=== PATIENT | female | born 1940 | race Caucasian/White ===

== ENCOUNTER 2019-11-14 08:59 | Observation (INO) ==
[2019-11-14 09:43] LABS: Basophils % 0.2 %; Eosinophils % 0.7 %; Hematocrit 33.1 % (35.3-44.9); Hemoglobin 10.1 g/dL (11.5-15.4); Immature Granulocytes % 0.4 % (0-4); Lymphocytes # 1.8 K/mcL (0.6-4.6); Lymphocytes % 32.4 %; Mean Corpuscular HGB Conc 30.5 g/dL (31.6-35.5); Mean Corpuscular Hemoglobin 29.7 pg (28.0-33.3); Mean Corpuscular Volume 97.4 fL (83.0-100.0); Mean Platelet Volume 10.3 fL (9.4-12.4); Monocytes # 0.3 K/mcL (0.0-1.3); Monocytes % 5.3 %; Red Cell Distribution Width 13.9 % (11.5-14.5); White Blood Count 5.5 K/mcL (4.3-11.1)
[2019-11-14] MEDS ORDERED: 0.9 % Sodium Chloride 1,000 ML IVC ONE (09:44)
[2019-11-14 09:49] LABS: Prothrombin Time 11.9 Seconds (9.4-12.1)
[2019-11-14 09:52] LABS: Activated Partial Thrombo Time 25.8 Seconds (26.0-36.0)
[2019-11-14 09:57] LABS: Neutrophils # 3.4 K/mcL (1.6-8.9); Platelet Count 68 K/mcL (140-400)
[2019-11-14 10:05] LABS: Alanine Aminotransferase 8 Units/L (7-52); Albumin 4.2 g/dL (3.5-5.7); Albumin/Globulin Ratio 2.2 (1.1-2.2); Alkaline Phosphatase 56 Units/L (34-104); Aspartate Amino Transferase 22 Units/L (13-39); BUN/Creatinine Ratio 23 (6-26); Bilirubin,Direct 0.3 mg/dL (0.0-0.2); Bilirubin,Total 1.3 mg/dL (0.3-1.0); Blood Urea Nitrogen 23 mg/dL (8-23); Calcium 9.8 mg/dL (8.6-10.3); Carbon Dioxide 29 mEq/L (23-29); Chloride 105 mEq/L (98-107); Globulin 1.9 g/dL (2.4-3.5); Glucose 93 mg/dL (70-105); Osmolality,Calculated 293 (280-300); Potassium 4.1 mEq/L (3.5-5.1); Sodium 140 mEq/L (136-145); Total Protein 6.1 g/dL (6.4-8.9); Troponin I < 0.03 ng/mL (< 0.04); eGFR For African Americans > 60 (> 60); eGFR For Non-African Americans 53 (> 60)
[2019-11-14] MEDS ORDERED: Isovue-370 500 ML BOTTLE IVP ONE ×2 (10:31→10:32)
[2019-11-14 10:37] LABS: Bilirubin,Urine Negative (Negative); Blood,Urine Negative (Negative); Clarity,Urine Clear (Clear); Color,Urine Yellow (Yellow); Glucose,Urine (UA) Normal (Normal); Ketones,Urine Negative (Negative); Leukocyte Esterase,Urine Negative (Negative); Nitrite,Urine Negative (Negative); Protein,Urine Negative (Neg-Trace); Specific Gravity,Urine 1.019 (1.010-1.025); Urobilinogen,Urine Normal (Normal)
[2019-11-14] MEDS ORDERED: Aspirin 81 MG TAB.CHEW PO ONE (11:44)
[2019-11-14] MEDS ORDERED: *HR* Heparin 5,000 UNIT/ML VIAL IVP ONE (11:44)
[2019-11-14] MEDS ORDERED: *HR* Heparin 5,000 UNIT/ML VIAL IVP PRN ×2 (11:44)
[2019-11-14] MEDS ORDERED: Heparin 25,000UNIT/250ML 1/2NS 25,000 UNIT/250 ML IV.SOLN IVC SCH (11:45)
[2019-11-14] MEDS ORDERED: Ondansetron 4 MG/2 ML VIAL IVP PRN (12:16)
[2019-11-14] MEDS ORDERED: Perflutren Lipid Microsphere 1.3 ML in 0.9 % Sodium Chloride 8.7 ML IVP PRN (12:16)
[2019-11-14] MEDS ORDERED: Naloxone 0.4 MG/ML INJ IVP PRN (12:16)
[2019-11-14 12:50] LABS: Hemoglobin 8.7 g/dL (11.5-15.4)
[2019-11-14 12:52] LABS: Hematocrit 28.8 % (35.3-44.9); Immature Platelets 3.2 % (1.1-6.1); Mean Corpuscular HGB Conc 30.2 g/dL (31.6-35.5); Mean Corpuscular Hemoglobin 29.6 pg (28.0-33.3); Mean Platelet Volume 9.7 fL (9.4-12.4); Red Blood Count 2.94 M/mcL (3.82-4.97); Red Cell Distribution Width 13.9 % (11.5-14.5); White Blood Count 4.6 K/mcL (4.3-11.1)
[2019-11-14 13:36] LABS: Adenovirus Not Detected (Not Detect); Bordetella Pertussis Not Detected (Not Detect); Chlamydophila pneumoniae Not Detected (Not Detect); Coronavirus 229E Not Detected (Not Detect); Coronavirus HKU1 Not Detected (Not Detect); Coronavirus NL63 Not Detected (Not Detect); Coronavirus OC43 Not Detected (Not Detect); Human Metapneumovirus Not Detected (Not Detect); Human Rhinovirus/Enterovirus Not Detected (Not Detect); Influenza A Subtype 2009 H1 Not Detected (Not Detect); Influenza B Not Detected (Not Detect); Mycoplasma pneumoniae Not Detected (Not Detect); Parainfluenza Virus 1 Not Detected (Not Detect); Parainfluenza Virus 2 Not Detected (Not Detect); Parainfluenza Virus 3 Not Detected (Not Detect); Parainfluenza Virus 4 Not Detected (Not Detect); Respiratory Syncytial Virus Not Detected (Not Detect)
[2019-11-14 17:30] LABS: Basophils % 0.2 %; Eosinophils % 0.6 %; Mean Corpuscular Volume 98.4 fL (83.0-100.0)
[2019-11-14 17:32] LABS: Immature Granulocytes % 0.4 % (0-4); Immature Platelets 3.2 % (1.1-6.1); Lymphocytes # 2.1 K/mcL (0.6-4.6); Lymphocytes % 41.1 %; Mean Corpuscular Hemoglobin 29.5 pg (28.0-33.3); Mean Platelet Volume 9.9 fL (9.4-12.4); Monocytes # 0.4 K/mcL (0.0-1.3); Monocytes % 8.5 %; Neutrophils # 2.5 K/mcL (1.6-8.9); Red Blood Count 3.05 M/mcL (3.82-4.97); Segmented Neutrophils % 49.2 %; White Blood Count 5.1 K/mcL (4.3-11.1)
[2019-11-14 17:37] LABS: Platelet Count 64 K/mcL (140-400)
[2019-11-14] MEDS: *HR* Heparin 5,000 UNIT/ML VIAL SQ SCH (18:21)
[2019-11-14] MEDS ORDERED: Gabapentin 300 MG CAPSULE PO SCH (22:15)
[2019-11-15] MEDS ORDERED: Albuterol 2.5 MG/3 ML NEBULIZER IH PRN (03:10)
[2019-11-15] MEDS ORDERED: Ipratropium/Albuterol Neb 3 ML IH ONE (03:14)
[2019-11-15 03:59] LABS: Hemoglobin 9.4 g/dL (11.5-15.4); Mean Corpuscular Volume 97.5 fL (83.0-100.0); Monocytes % 7.5 %
[2019-11-15 04:00] LABS: Eosinophils % 0.6 %; Hematocrit 30.6 % (35.3-44.9); Immature Granulocytes % 0.4 % (0-4); Immature Platelets 3.1 % (1.1-6.1); Lymphocytes # 2.2 K/mcL (0.6-4.6); Lymphocytes % 42.2 %; Mean Corpuscular HGB Conc 30.7 g/dL (31.6-35.5); Mean Corpuscular Hemoglobin 29.9 pg (28.0-33.3); Mean Platelet Volume 10.2 fL (9.4-12.4); Monocytes # 0.4 K/mcL (0.0-1.3); Neutrophils # 2.6 K/mcL (1.6-8.9); Red Blood Count 3.14 M/mcL (3.82-4.97); Red Cell Distribution Width 13.8 % (11.5-14.5); Segmented Neutrophils % 49.3 %; White Blood Count 5.2 K/mcL (4.3-11.1)
[2019-11-15 04:03] LABS: Platelet Count 63 K/mcL (140-400)
[2019-11-15 04:17] LABS: BUN/Creatinine Ratio 22 (6-26); Blood Urea Nitrogen 18 mg/dL (8-23); Calcium 8.8 mg/dL (8.6-10.3); Carbon Dioxide 28 mEq/L (23-29); Chloride 109 mEq/L (98-107); Glucose 93 mg/dL (70-105); Osmolality,Calculated 296 (280-300); Potassium 4.1 mEq/L (3.5-5.1); Sodium 142 mEq/L (136-145); eGFR For African Americans > 60 (> 60); eGFR For Non-African Americans > 60 (> 60)
[2019-11-15] MEDS: *HR* Heparin 5,000 UNIT/ML VIAL SQ SCH ×2 (05:07→14:52)
[2019-11-15] MEDS ORDERED: Nitroglycerin 1 INCH/GM PACKET TP ONE (10:35)
[2019-11-15 11:37] LABS: % Iron Saturation 11 % (15-50); Iron 28 mcg/dL (50-170); Transferrin 185 mg/dL (203-362)
[2019-11-15 11:45] LABS: Ferritin 177 ng/mL (10-120)
[2019-11-15] MEDS ORDERED: *HR* OxyCODONE/APAP 5/325 TABLET PO PRN (14:56)
[2019-11-15] MEDS: Cholecalciferol (D-3) 1,000 UNIT (25MCG) TABLET PO SCH (16:05)
[2019-11-15] MEDS: Furosemide 40 MG TABLET PO SCH (16:05)
[2019-11-15 18:11] LABS: Folate 11.4 ng/mL (3.0-16.0)
[2019-11-15 18:14] LABS: Hepatitis B Surface Antigen Nonreactive (Nonreactive)
[2019-11-15 18:43] LABS: Hepatitis C Virus Antibody Nonreactive (Nonreactive)
[2019-11-15 18:44] LABS: Hepatitis B Core IgM Nonreactive (Nonreactive)
[2019-11-15 18:45] LABS: Hepatitis A Antibody IgM Nonreactive (Nonreactive)
[2019-11-15] MEDS: Gabapentin 300 MG CAPSULE PO SCH (22:19)
[2019-11-15] MEDS: traZODone 50 MG TABLET PO SCH (22:19)
[2019-11-16 04:41] LABS: Basophils % 0.2 %; White Blood Count 5.9 K/mcL (4.3-11.1)
[2019-11-16 04:43] LABS: Eosinophils % 0.7 %; Hematocrit 28.8 % (35.3-44.9); Hemoglobin 8.9 g/dL (11.5-15.4); Immature Granulocytes % 0.2 % (0-4); Immature Platelets 3.3 % (1.1-6.1); Lymphocytes % 58.5 %; Mean Corpuscular HGB Conc 30.9 g/dL (31.6-35.5); Mean Corpuscular Hemoglobin 29.9 pg (28.0-33.3); Mean Corpuscular Volume 96.6 fL (83.0-100.0); Mean Platelet Volume 10.1 fL (9.4-12.4); Monocytes # 0.4 K/mcL (0.0-1.3); Monocytes % 6.6 %; Red Blood Count 2.98 M/mcL (3.82-4.97); Red Cell Distribution Width 13.9 % (11.5-14.5); Segmented Neutrophils % 33.8 %
[2019-11-16 04:44] LABS: Lymphocytes # 3.5 K/mcL (0.6-4.6); Platelet Count 62 K/mcL (140-400)
[2019-11-16 04:57] LABS: BUN/Creatinine Ratio 16 (6-26); Blood Urea Nitrogen 17 mg/dL (8-23); Calcium 8.9 mg/dL (8.6-10.3); Carbon Dioxide 31 mEq/L (23-29); Chloride 107 mEq/L (98-107); Glucose 88 mg/dL (70-105); Osmolality,Calculated 297 (280-300); Potassium 3.9 mEq/L (3.5-5.1); Sodium 143 mEq/L (136-145); eGFR For African Americans > 60 (> 60); eGFR For Non-African Americans 50 (> 60)
[2019-11-16] MEDS: Furosemide 40 MG TABLET PO SCH (12:57)
[2019-11-16] MEDS: Cholecalciferol (D-3) 1,000 UNIT (25MCG) TABLET PO SCH (12:57)
[2019-11-16] MEDS: Cyanocobalamin (B-12) 1,000 MCG/ML VIAL IM SCH (13:16)
[2019-11-16] MEDS ORDERED: 0.9 % Sodium Chloride 500 ML ONE (14:24)
[2019-11-16] MEDS ORDERED: *HR* FentaNYL (PF) 100 MCG/2 ML VIAL IVP ONE (14:35)
[2019-11-16] MEDS ORDERED: *HR* Midazolam HCl 2 MG/2 ML VIAL IVP ONE (14:35)
[2019-11-16] MEDS: traZODone 50 MG TABLET PO SCH (21:34)
[2019-11-16] MEDS: Gabapentin 300 MG CAPSULE PO SCH (21:34)
[2019-11-17 04:17] LABS: Basophils % 0.2 %; Hemoglobin 8.7 g/dL (11.5-15.4)
[2019-11-17 04:19] LABS: Eosinophils # 0.1 K/mcL (0.0-0.6); Eosinophils % 1.2 %; Immature Granulocytes % 0.5 % (0-4); Lymphocytes # 3.7 K/mcL (0.6-4.6); Lymphocytes % 56.3 %; Mean Corpuscular Hemoglobin 29.4 pg (28.0-33.3); Mean Platelet Volume 9.8 fL (9.4-12.4); Monocytes # 0.5 K/mcL (0.0-1.3); Monocytes % 7.1 %; Neutrophils # 2.3 K/mcL (1.6-8.9); Red Blood Count 2.96 M/mcL (3.82-4.97); Red Cell Distribution Width 14.1 % (11.5-14.5); Segmented Neutrophils % 34.7 %; White Blood Count 6.5 K/mcL (4.3-11.1)
[2019-11-17 04:26] LABS: Platelet Count 64 K/mcL (140-400)
[2019-11-17 04:36] LABS: Calcium 8.7 mg/dL (8.6-10.3); Potassium 4.2 mEq/L (3.5-5.1)
[2019-11-17 06:30] VITALS: BP 125/78
[2019-11-17] MEDS: Cholecalciferol (D-3) 1,000 UNIT (25MCG) TABLET PO SCH (08:42)
[2019-11-17] MEDS: Cyanocobalamin (B-12) 1,000 MCG/ML VIAL IM SCH (08:42)
[2019-11-17] MEDS: Furosemide 40 MG TABLET PO SCH (08:42)
[2019-11-17 16:54] LABS: Kappa Qnt Free Light Chains 19.96 mg/L (3.30-19.40); Lambda Qnt Free Light Chains 34.76 mg/L (5.71-26.30)
[2019-11-19 03:22] LABS: Alpha 2 Globulin (PEP) 0.55 g/dL (0.48-1.05); Beta Globulin (PEP) 0.45 g/dL (0.48-1.10)
[2019-11-19 13:54] LABS: Immunoglobulin G 423 mg/dL (768-1632); Immunoglobulin M 66 mg/dL (35-263)
[2019-11-19 13:55] LABS: Immunoglobulin A 53 mg/dL (68-408)
[2019-11-19 14:07] LABS: IFE Reflexed IFE Done
== END 2019-11-17 12:01 | disposition home or self-care (01) ==
LOC: EMEROOARM 08:59 → 3ANU 08:59 → SUATTDRO 12:16 → 3ANU 16:14
PROVIDERS: ADMIT Internal Medicine; ATTEND Internal Medicine
PROC: IRLYMPH (2019-11-17 08:00)

== ENCOUNTER 2020-01-03 21:48 | Observation (INO) ==
[2020-01-03] MEDS ORDERED: Naloxone 0.4 MG/ML INJ IVP PRN (22:47)
[2020-01-04 02:50] LABS: Hematocrit 29.5 % (35.3-44.9); Hemoglobin 9.2 g/dL (11.5-15.4); Mean Corpuscular HGB Conc 31.2 g/dL (31.6-35.5); Mean Corpuscular Hemoglobin 29.9 pg (28.0-33.3); Mean Corpuscular Volume 95.8 fL (83.0-100.0); Red Blood Count 3.08 M/mcL (3.82-4.97)
[2020-01-04 02:52] LABS: Immature Platelets 3.6 % (1.1-6.1); Mean Platelet Volume 10.5 fL (9.4-12.4); Monocytes # 0.5 K/mcL (0.0-1.3); Nucleated Red Blood Cells 0.6 /100 WBC (0); Red Cell Distribution Width 15.9 % (11.5-14.5); White Blood Count 3.4 K/mcL (4.3-11.1)
[2020-01-04 02:57] LABS: Platelet Count 99 K/mcL (140-400)
[2020-01-04 03:09] LABS: Alanine Aminotransferase 6 Units/L (7-52); Albumin 3.4 g/dL (3.5-5.7); Albumin/Globulin Ratio 2.1 (1.1-2.2); Alkaline Phosphatase 66 Units/L (34-104); Aspartate Amino Transferase 9 Units/L (13-39); BUN/Creatinine Ratio 12 (6-26); Bilirubin,Total 0.5 mg/dL (0.3-1.0); Blood Urea Nitrogen 11 mg/dL (8-23); Calcium 8.3 mg/dL (8.6-10.3); Carbon Dioxide 26 mEq/L (23-29); Chloride 107 mEq/L (98-107); Globulin 1.6 g/dL (2.4-3.5); Glucose 129 mg/dL (70-105); Magnesium 1.5 mg/dL (1.6-2.6); Osmolality,Calculated 291 (280-300); Phosphorous 2.7 mg/dL (2.7-4.5); Potassium 4.1 mEq/L (3.5-5.1); Sodium 140 mEq/L (136-145); eGFR For African Americans > 60 (> 60); eGFR For Non-African Americans 58 (> 60)
[2020-01-04 03:18] LABS: Lymphocytes # 0.6 K/mcL (0.6-4.6); Neutrophils # 2.3 K/mcL (1.6-8.9)
[2020-01-04 03:19] LABS: Hypochromasia Present (Not Present); Platelet Estimate Decreased (Normal); Reactive Lymphocytes Present (Not Present)
[2020-01-04] MEDS ORDERED: Albuterol 2.5 MG/3 ML NEBULIZER IH PRN (10:05)
[2020-01-04] MEDS ORDERED: Ondansetron ODT 4 MG TAB.RAPDIS PO PRN (10:05)
[2020-01-04] MEDS ORDERED: Loratadine 10 MG TABLET PO PRN (10:05)
[2020-01-04] MEDS ORDERED: Cholecalciferol (D-3) 1,000 UNIT (25MCG) TABLET PO SCH (10:15)
[2020-01-04] MEDS ORDERED: allopurinoL 300 MG TABLET PO SCH (10:15)
[2020-01-04 10:28] VITALS: BP 122/54
[2020-01-04] MEDS ORDERED: Magnesium Oxide 400 MG TABLET PO SCH (11:15)
[2020-01-04] MEDS ORDERED: *HR* Heparin 5,000 UNIT/ML VIAL SQ SCH (18:00)
[2020-01-04] MEDS ORDERED: Gabapentin 300 MG CAPSULE PO SCH (21:00)
[2020-01-04] MEDS ORDERED: traZODone 50 MG TABLET PO SCH (21:00)
[2020-01-05] MEDS ORDERED: Furosemide 40 MG TABLET PO SCH (08:00)
== END 2020-01-04 13:15 | disposition home or self-care (01) ==
LOC: 3BNU → SUATTDRO 21:48
PROVIDERS: ADMIT Internal Medicine; ATTEND Internal Medicine